=== PATIENT | female | born 1975 | race Caucasian/White ===

== ENCOUNTER 2017-08-19 10:06 | Emergency (ER) | payer BC ==
[2017-08-19] MEDS ORDERED: ONDANSETRON HCL INJ/PF 4 MG/2 ML SDV IV ONE (10:51)
[2017-08-19] MEDS ORDERED: DEXAMETHASONE SOD PHOS INJ 10 MG/1 ML VIAL IV ONE (10:51)
[2017-08-19] MEDS ORDERED: MORPHINE SULFATE 10 MG/ML INJ IV ONE (10:51)
--- NOTE | 2017-08-19 10:53 | ER Document Report ---
ED Oral Problem - General Chief Complaint: Jaw Pain Stated Complaint: SORE THROAT, SWELLING Time Seen by Provider: 08/19/17 10:50 Mode of Arrival: Ambulatory Information source: Patient Notes: 42 yo smoker female with fever, swelling under chin since 0200, suspects from dental decay/problems. Saw dentist in July and referred to Oral surgeon- on Stephy Marte?, appt is next . No dm, htn. TRAVEL OUTSIDE OF THE [place] IN LAST 30 DAYS: No - Related Data Allergies/Adverse Reactions: No Known Allergies Allergy (Unverified 08/19/17 11:46) Past Medical History - General Information source: Patient - Social History Smoking Status: Current Every Day Smoker Frequency of alcohol use: None Drug Abuse: None Occupation: drew Lives with: Spouse/Significant other Family History: Reviewed & Not Pertinent - Medical History Medical History: Negative Past Surgical History: Reports: Hx Section Review of Systems - Review of Systems Constitutional: No symptoms reported EENT: See HPI Cardiovascular: No symptoms reported Respiratory: No symptoms reported Gastrointestinal: No symptoms reported Genitourinary: No symptoms reported Female Genitourinary: No symptoms reported Musculoskeletal: No symptoms reported Skin: No symptoms reported Hematologic/Lymphatic: No symptoms reported Neurological/Psychological: No symptoms reported Physical Exam - Vital signs Vitals: Temp Pulse Resp BP Pulse Ox 100.4 F 90 20 141/79 H 97 08/19/17 10:16 08/19/17 10:16 08/19/17 10:16 08/19/17 10:16 08/19/17 10:16 Interpretation: Febrile - General General appearance: Other - drowsy - HEENT Head: Normocephalic, Atraumatic Eyes: Normal Conjunctiva: Normal Pupils: PERRL External canal: Normal Tympanic membrane: Normal Mouth/Lips: Other - extensive decay, subemental 6 cm mass which is tender, swelling under the tongue, no swelling posterior pharynx, Mucous membranes: Normal - Respiratory Respiratory status: No respiratory distress Chest status: Nontender Breath sounds: Normal Chest palpation: Normal - Cardiovascular Rhythm: Regular Heart sounds: Normal auscultation Murmur: No - Abdominal Inspection: Normal Distension: No distension Bowel sounds: Normal Tenderness: Nontender Organomegaly: No organomegaly - Back Back: Normal, Nontender - Extremities General upper extremity: Normal inspection, Nontender, Normal color, Normal ROM , Normal temperature General lower extremity: Normal inspection, Nontender, Normal color, Normal ROM , Normal temperature, Normal weight bearing. No: Sarita's sign - Neurological Neuro grossly intact: Yes Cognition: Normal Orientation: AAOx4 Nestor Coma Scale Eye Opening: Spontaneous [place] Coma Scale Verbal: Oriented [place] Coma Scale Motor: Obeys Commands Nestor Coma Scale Total: 15 Speech: Normal Motor strength normal: LUE, RUE, LLE, RLE Sensory: Normal - Psychological Associated symptoms: Normal affect, Normal mood - Skin Skin Temperature: Warm Skin Moisture: Dry Skin Color: Normal Course - Re-evaluation Re-evalutation: 08/19/17 12:19 Lactic acid is 1.1, white count is 19,000 with a shift. 08/19/17 12:19 08/19/17 14:12 dr méndez looked at CT twice, no abscess, phlegmon, just swelling to the right submandibular node. Dr dawn checked the pt as well. Antibiotics and steroids. see the oral surgeon. - Vital Signs Vital signs: Temp Pulse Resp BP Pulse Ox 100.4 F 90 20 141/79 H 97 08/19/17 10:16 08/19/17 10:16 08/19/17 10:16 08/19/17 10:16 08/19/17 10:16 - Laboratory Result Diagrams: 08/19/17 11:32 08/19/17 11:32 Laboratory results interpreted by me: 08/19/17 11:32 WBC 19.1 H Seg Neutrophils % 85.1 H Lymphocytes % 8.7 L Absolute Neutrophils 16.3 H Discharge - Discharge Clinical Impression: Dental infection, submandibular lymph node Condition: Good Disposition: HOME, SELF-CARE Instructions: Lymphadenopathy ([facility]), Oral Narcotic Medication ([facility]), Clindamycin ([facility]), Steroid Medication, Warm Packs ([facility]) Additional Instructions: Warm compress Motrin Pain medication Antibiotics See the oral surgeon as planned Return to the emergency room for any worsening of the swelling or pain Prescriptions: Hydrocodone Bit/Acetaminophen [Hydrocodon-Acetaminophen 5-325] 1 each PO Q4HP PRN #15 tablet PRN Reason: Clindamycin HCl [Cleocin 150 mg Capsule] 300 mg PO TID #56 capsule Prednisone [Deltasone 20 mg Tablet] 40 mg PO DAILY #8 tablet Forms: Return to Work
[2017-08-19] MEDS ORDERED: NORMAL SALINE 1000 ML 1,000 ML IV ONE (10:56)
[2017-08-19] MEDS ORDERED: DIPHENHYDRAMINE HCL 50 MG/ML VIAL ONE (11:31)
[2017-08-19] MEDS ORDERED: DIPHENHYDRAMINE HCL 50 MG/ML VIAL IV ONE (11:31)
[2017-08-19 11:50] LABS: ABSOLUTE LYMPHOCYTES (AUTO) 1.7 10^3/uL (0.5-4.7); ABSOLUTE MONOCYTES (AUTO) 1.1 10^3/uL (0.1-1.4); ABSOLUTE NEUT (AUTO) 16.3 10^3/uL (1.7-8.2); BASOPHILS % (AUTO) 0.2 % (0-2); EOSINOPHILS % (AUTO) 0.2 % (0-6); HEMATOCRIT 42.3 % (36.0-47.0); HEMOGLOBIN 14.5 g/dL (12.0-15.5); LYMPHOCYTES % (AUTO) 8.7 % (13-45); MEAN CORPUSCULAR HEMOGLOBIN 30.1 pg (27.0-33.4); MEAN CORPUSCULAR HGB CONC 34.2 g/dL (32.0-36.0); MEAN CORPUSCULAR VOLUME 88 fl (80-97); MONOCYTES % (AUTO) 5.8 % (3-13); PLATELET COUNT 319 10^3/uL (150-450); RED BLOOD COUNT 4.81 10^6/uL (3.72-5.28); RED CELL DISTRIBUTION WIDTH 13.5 % (11.5-14.0); SEGMENTED NEUTROPHILS % (AUTO) 85.1 % (42-78); TOTAL CELLS COUNTED % (AUTO) 100 %; WHITE BLOOD COUNT 19.1 10^3/uL (4.0-10.5)
[2017-08-19 12:11] LABS: ALANINE AMINOTRANSFERASE 24 U/L (9-52); ALBUMIN 4.4 g/dL (3.5-5.0); ALKALINE PHOSPHATASE 62 U/L (38-126); ANION GAP 12 (5-19); ASPARTATE AMINO TRANSFERASE 17 U/L (14-36); BILIRUBIN,DIRECT 0.4 mg/dL (0.0-0.4); BILIRUBIN,TOTAL 0.6 mg/dL (0.2-1.3); BLOOD UREA NITROGEN 9 mg/dL (7-20); CALCIUM 9.8 mg/dL (8.4-10.2); CARBON DIOXIDE 25 mmol/L (22-30); CHLORIDE 104 mmol/L (98-107); GLUCOSE 110 mg/dL (75-110); POTASSIUM 4.2 mmol/L (3.6-5.0); SODIUM 140.7 mmol/L (137-145); TOTAL PROTEIN 7.3 g/dL (6.3-8.2)
[2017-08-19] MEDS ORDERED: CLINDAMYCIN 600 MG/D5W RTU 600 MG/50 ML RTUPB IV ONE (13:00)
--- NOTE | 2017-08-19 14:04 | RADIOLOGY REPORT (SQ) ---
EXAM DESCRIPTION: CT SOFT TISSUE NECK WITH COMPLETED DATE/TIME: 08/19/2017 1:35 pm REASON FOR STUDY: ? ludwigs pain and palpable abnormality right submandibular region COMPARISON: None. TECHNIQUE: Post IV contrasted scanning from skull base through lung apices with review of bone, soft tissue and lung windows. Reconstructed coronal and sagittal MPR images reviewed. All images stored on PACS. All CT scanners at this facility use dose modulation, iterative reconstruction, and/or weight based d osing when appropriate to reduce radiation dose to as low as reasonably achievable (ALARA). [facility]: Dose Right [facility]: CareDose [facility]: Dose Right [facility]: Teradose 4D [facility]: [employer] CONTRAST TYPE AND DOSE: contrast/concentration: Isovue 370.00 mg/ml; Total Contrast Delivered: 74.9 ml; Total Saline Delivered: 48.1 ml RENAL FUNCTION: Creatinine 0.5 RADIATION DOSE: CT Rad equipment meets quality standard of care and radiation dose reduction techniq ues were employed. CTDIvol: 16.1 mGy. DLP: 530 mGy-cm. . LIMITATIONS: None. FINDINGS: There is diffuse inflammatory change in the right submandibular region with stranding in t he fat around an enlarged inflamed right submandibular gland. Adjacent 1.3 x 0.8 cm lymph node. No right submandibular duct calculi. No well circumscribed abscess. Findings discussed with Kaley dempsey in the ER 1315 hours, 08/19/2017. SKULL BASE: Intact. MAJOR SALIVARY GLANDS: Right submandibular gland inflammation. Remainder of the major salivary gland s are unremarkable LYMPHADENOPATHY: 1.3 x 0.8 cm right submandibular region lymph node. No other adenopathy or masses. MUCOSAL MASSES OR ASYMMETRY: No mucosal masses or asymmetry. LARYNX/CORDS: No abnormal findings. VASCULAR STRUCTURES: The major vessels are patent. LUNG APICES: Clear. BONES: Intact. THYROID: Normal size. No masses. PARANASAL SINUSES: Clear. OTHER: No other significant finding. IMPRESSION: Right submandibular gland inflammation/infection. No submandibular duct stone. No well circumscribed abscess TECHNICAL DOCUMENTATION: JOB ID: [id number] Quality ID # [id number]: Final reports with documentation of one or more dose reduction techniques (e.g., Au tomated exposure control, adjustment of the mA and/or kV according to patient size, use of iterative reconstruction technique) 2010 [employer]- All Rights Reserved Reading location - IP/workstation name: [email or web address]
[2017-08-19 14:47] VITALS: BP 124/71
== END 2017-08-19 14:47 | disposition home or self-care (01) ==
LOC: ER 10:06
DX: K04.7 Periapical abscess without sinus (principal); K02.9 Dental caries, unspecified; R59.0 Localized enlarged lymph nodes; F17.200 Nicotine dependence, unspecified, uncomplicated
CPT/HCPCS: 99284; 96361; 96374; 96375; 36415; 87040; 85025; 80053; 83605; 70491; J1200; J2270; J2405; J7030; J1100

== ENCOUNTER 2017-10-14 11:14 | Emergency (ER) | payer BC ==
[2017-10-14 11:21] VITALS: BP 130/76
--- NOTE | 2017-10-14 11:42 | ER Document Report ---
ED Head/Face/Scalp Injury - General Chief Complaint: Facial Swelling Stated Complaint: FACE PAIN Time Seen by Provider: 10/14/17 11:24 Mode of Arrival: Ambulatory Information source: Patient Notes: 42-year-old female presents to ED for complaint of facial swelling and redness since yesterday The facial redness starts about the upper jawline and goes up right below the eye with a puffiness just below the eye. She states she has been taking amoxicillin and ibuprofen. She states she is not sure what the cause of but it has kept her awake the last 2 days. She is alert and oriented, pupils equal and react to light, speaking in full sentences, respirations regular and unlabored, and walking with a even steady gait. TRAVEL OUTSIDE OF THE [place] IN LAST 30 DAYS: No - HPI Patient complains to provider of: Pain, Swelling Injury to: Cheek - Left Location of problem: Cheek - Left cheek Occurred: Other - 2 days Timing: Still present Context: Redness, Swelling, Other - Pain Loss consciousness: No loss of consciousness Remembers: Coming to hospital. No: Injury - No injuries - Related Data Allergies/Adverse Reactions: No Known Allergies Allergy (Verified 10/14/17 11:16) Past Medical History - General Information source: Patient - Social History Smoking Status: Current Every Day Smoker Cigarette use (# per day): Yes - ppd Chew tobacco use (# tins/day): No Smoking Education Provided: Yes - 4 min Frequency of alcohol use: Social Occupation: drew Lives with: Family Family History: Reviewed & Not Pertinent Patient has suicidal ideation: No Patient has homicidal ideation: No - Past Medical History Cardiac Medical History: Reports: None Pulmonary Medical History: Reports: None EENT Medical History: Reports: None Neurological Medical History: Reports: None Endocrine Medical History: Reports: None Renal/ Medical History: Reports: None Malignancy Medical History: Reports: None GI Medical History: Reports: None Musculoskeltal Medical History: Reports None Skin Medical History: Reports None Psychiatric Medical History: Reports: None Traumatic Medical History: Reports: None Infectious Medical History: Reports: None Past Surgical History: Reports: Hx Section, Hx Oral Surgery Review of Systems - Review of Systems Constitutional: No symptoms reported EENT: Mouth pain, Dental problem, Other - Facial cellulitis left side Cardiovascular: No symptoms reported Respiratory: No symptoms reported Gastrointestinal: No symptoms reported Genitourinary: No symptoms reported Female Genitourinary: No symptoms reported Musculoskeletal: No symptoms reported Skin: Other Hematologic/Lymphatic: No symptoms reported Neurological/Psychological: No symptoms reported Physical Exam - Vital signs Vitals: Temp Pulse Resp BP Pulse Ox 99.1 F 72 16 130/76 H 97 10/14/17 11:19 10/14/17 11:19 10/14/17 11:19 10/14/17 11:19 10/14/17 11:19 Interpretation: Normal - General General appearance: Appears well, Alert - HEENT Head: Normocephalic, Atraumatic, Other - Cellulitis to the left cheek up to just below the eye Eyes: Normal, Periorbital edema - Below the eye on the left Pupils: PERRL Ears: Normal External canal: Normal Tympanic membrane: Normal Sinus: Normal Nasal: Swelling, Clear rhinorrhea Mouth/Lips: Caries - Multiple dental cavities on the upper and lower jaw on the left side many of broken off at the gumline. There is redness and inflammation around the teeth. Facial cellulitis up to just below the eye. Mucous membranes: Normal - Respiratory Respiratory status: No respiratory distress Chest status: Nontender Breath sounds: Normal Chest palpation: Normal - Cardiovascular Rhythm: Regular Heart sounds: Normal auscultation Murmur: No - Abdominal Inspection: Normal Distension: No distension Bowel sounds: Normal Tenderness: Nontender Organomegaly: No organomegaly - Back Back: Normal, Nontender - Extremities General upper extremity: Normal inspection, Nontender, Normal color, Normal ROM , Normal temperature General lower extremity: Normal inspection, Nontender, Normal color, Normal ROM , Normal temperature, Normal weight bearing. No: Sarita's sign - Neurological Neuro grossly intact: Yes Cognition: Normal Orientation: AAOx4 [place] Coma Scale Eye Opening: Spontaneous [place] Coma Scale Verbal: Oriented [place] Coma Scale Motor: Obeys Commands Nestor Coma Scale Total: 15 Speech: Normal Motor strength normal: LUE, RUE, LLE, RLE Sensory: Normal - Psychological Associated symptoms: Normal affect, Normal mood - Skin Skin Temperature: Warm Skin Moisture: Dry Skin Color: Normal Location of irregularity: Face - Cellulitis to the right cheek from just below the eye to just above the right jaw. Character of irregularity: Erythematous Irregularity with: Swelling, Tenderness, Warmth Course - Re-evaluation Re-evalutation: 10/14/17 12:[address] Guajardo for the cellulitis to the left cheek. He agreed that the cellulitis at this point is due to the dental infection on the left upper and lower jaw. Will treat with a gram of Rocephin IM in the emergency room as well as 600 mg of clindamycin P and discharged home with clindamycin 300 mg p.o. every 6 hours for the next 10 days. Patient has been instructed to return to the emergency room if he gets any worse if she develops fevers she has any trouble opening and shutting her moving her eyes or any other increase in pain or fever. Patient is to return to the ED tomorrow if it is not started to improve. Patient is to follow-up with a oral surgeon as soon as possible to have these teeth removed. After performing a Medical Screening Examination, I estimate there is LOW risk for a DEEP SPACE INFECTION (e.g., CHIQUITA'S ANGINA OR RETROPHARYNGEAL ABSCESS), MENINGITIS, INTRACRANIAL HEMORRHAGE, or AIRWAY COMPROMISE, thus I consider the discharge disposition reasonable. Also, there is no evidence or peritonitis, sepsis, or toxicity. I have reevaluated this patient multiple times and no significant life threatening changes are noted. The patient and I have discussed the diagnosis and risks, and we agree with discharging home with close follow-up with the understanding that symptoms and presentations can change. We also discussed returning to the Emergency Department immediately if new or worsening symptoms occur. We have discussed the symptoms which are most concerning (e.g., changing or worsening pain, trouble swallowing or breathing, neck stiffness or fever) that necessitate immediate return. - Vital Signs Vital signs: Temp Pulse Resp BP Pulse Ox 99.1 F 72 16 130/76 H 97 10/14/17 11:19 10/14/17 11:19 10/14/17 11:19 10/14/17 11:19 10/14/17 11:19 Discharge - Discharge Clinical Impression: facial cellulitis left from dental pain, Pain due to dental caries Condition: Stable Disposition: HOME, SELF-CARE Instructions: Dentist, Family Physicians / Practices Additional Instructions: CELLULITIS: You have an infection of your skin and underlying soft tissues called cellulitis. This is due to bacteria, which can enter through any break in the skin, or even through an irritated hair follicle. Untreated, cellulitis will usually worsen. Antibiotics are required. Usually, warm packs or warm soaks, and elevation of the infected area are recommended. You should start getting better within 24 to 36 hours. Most infections respond quickly to the right medication. Follow-up care is important, however, to check for abscess (boil) formation, unsuspected foreign body, or resistant infection. If you develop fever, chills, or if the area of infection is becoming rapidly more swollen or painful, call the doctor at once. TOOTHACHE: Your pain is due to dental decay. The tooth must be repaired in order for you to feel better. You will, therefore, be referred to a dentist. We do not have dentists on the staff at [facility]. Severe swelling or drainage around a tooth usually means a dental abscess. This also requires evaluation and treatment by the dentist, but antibiotics may be prescribed while awaiting dental treatment. You should be rechecked immediately if you develop major swelling of the face, increasing pain, a lump in the jaw or gums, headache, difficulty swallowing, or fever. Rocephin You have been given an injection of an antibiotic called Rocephin ( ceftriaxone). Sometimes the injection must be combined with antibiotic pills. For some infections, such as an uncomplicated ear infection, Rocephin provides all the antibiotic that's needed. The antibiotic will be in your body for about two days. For serious infections, we usually repeat doses of Rocephin daily. Side effects are very unusual following a shot. Women may develop vaginal yeast infections, and babies can get yeast (thrush) in the mouth following the use of antibiotics. Contact your physician if you have symptoms with this medication. Allergy to this antibiotic can result in hives, wheezing, faintness, or itching. If symptoms of allergy occur, call the doctor at once. CLINDAMYCIN: You have been given a prescription for the antibiotic clindamycin. It is often prescribed for infections in the mouth, such as dental infections or abscesses, and for skin infections due to MRSA. It's important that you take all the medication, unless instructed otherwise by your physician. Failure to complete the entire course can result in relapse of your condition. Common side effects of antibiotics include nausea, intestinal cramping, or diarrhea. Women may develop vaginal yeast infections, and babies can get yeast (thrush) in the mouth following the use of antibiotics. Contact your physician if you develop significant side effects from this medication. Allergy to this antibiotic can result in hives, wheezing, faintness, or itching. If symptoms of allergy occur, stop the medication and call the doctor. FOLLOW-UP CARE: You have been referred for follow-up care to the dentists listed below. Call the dentists office for an appointment as you were instructed or within the next two days. If you experience worsening or a significant change in your symptoms, notify the physician immediately or return to the Emergency Department at any time for re-evaluation. [facility] [address] [place], [place] [facility] [address] [place] [address] [facility] [address] [facility] [address] [facility] [address] [email or web address] [address] [place] [address] Tuesday- 8:00am to 5:00 pm Will see patients from other [facility]. Charges based on income and family size and accepts Medicare, Medicaid, and Insurances Will pull molars [facility] [place] [address] Hours of Operation 8:00 am - 4:30 pm weekdays The following dental offices accept Medicaid: [facility] Dr. Chance Dr. Ashley Dr. Gerardo Dr. Vital Giovanni Sharif, Gui, and Radha oral surgery Dr. Tan ([place]) Dr. Swift ([place]) [facility] Drs. Moreno ([place]) Dr. Lancaster ([place]) [facility] Dr. Hodges ([place]) Drs. San and ([place]) Medicaid Care Line Prescriptions: Clindamycin HCl 300 mg PO Q6 #40 capsule Forms: Elevated Blood Pressure, Smoking Cessation Education, Return to Work
[2017-10-14] MEDS ORDERED: CEFTRIAXONE INJ 1000 MG VIAL IM ONE (11:46)
[2017-10-14] MEDS ORDERED: LIDOCAINE 1% INJ-PF (10 MG/ML) 30 ML SDV INJ ONE (11:46)
[2017-10-14] MEDS ORDERED: CLINDAMYCIN HCL 150 MG CAPSULE PO ONE (11:46)
[2017-10-14] MEDS ORDERED: IBUPROFEN 800 MG TABLET PO ONE (11:47)
[2017-10-14] MEDS ORDERED: LIDOCAINE 2% VISCOUS SOLN 20 ML UDCUP PO ONE (11:48)
== END 2017-10-14 12:08 | disposition home or self-care (01) ==
LOC: ER 11:14
DX: K02.9 Dental caries, unspecified (principal); L03.211 Cellulitis of face; F17.210 Nicotine dependence, cigarettes, uncomplicated
CPT/HCPCS: 99406; 99283; 96372; J3490 ×2; J0696